=== PATIENT | male | born 1975 | race Caucasian/White ===

== ENCOUNTER → 2021-10-08 | Outpatient (CLI) | payer OTHER ==
--- NOTE | 2021-10-08 09:52 | XR ---
EXAMINATION TYPE: XR knee complete RT DATE OF EXAM: 10/08/2021 COMPARISON: NONE HISTORY: Pain TECHNIQUE: Three views are submitted. FINDINGS: A narrowing of the joint space is seen with hypertrophic spurring. Small amount of fluid was. Osseou s structures are intact. No acute fracture seen. IMPRESSION: 1. Delivered bursa. Hypertrophic arthropathy correlate clinically. 2. There is a small amount of fluid in the suprapatellar bursa correlate clinically..
== END | disposition home or self-care (01) ==
LOC: RADXRMAIN 09:31
PROVIDERS: ATTEND Family Medicine
DX: M12.861 Other specific arthropathies, not elsewhere classified, right knee (principal); M70.51 Other bursitis of knee, right knee